=== PATIENT | female | born 1970 | race Caucasian/White ===

== ENCOUNTER → 2017-04-04 16:57 | Outpatient (CLI) | payer MEDICAID ==
[2014-03-31 06:43] VITALS: BMI 33.3
[~2017-04-04 16:57] MED LIST: MULTI-DAY VITAM1 TAB PO; PERCOCET 10/3251 TA1 PO; SEROQUEL50 MG PO; TOPAMAX25 MG PO; ginseng OR
== END | disposition home or self-care (01) ==
LOC: D.MAMMO 08:30
DX: Z85.3 Personal history of malignant neoplasm of breast (principal)

== ENCOUNTER 2018-03-17 08:00 | Outpatient (CLI) | payer MEDICAID ==
[2014-03-31 06:43] VITALS: BMI 33.3
[2018-05-14] MEDS ORDERED: EFFEXOR XR75 MG PO (14:16)
[2018-05-14] MEDS ORDERED: LAMICTAL25 MG PO (14:16)
[2018-05-14] MEDS ORDERED: SEROQUEL200 MG PO (14:17)
[2018-05-14] MEDS ORDERED: LISINOPRIL10 MG PO (14:17)
== END 2018-03-17 09:00 | disposition home or self-care (01) ==
LOC: D.MAMMO 08:00
DX: Z12.31 Encounter for screening mammogram for malignant neoplasm of breast (principal)

== ENCOUNTER 2018-04-15 14:59 | Emergency (ER) | payer MEDICAID ==
[~2018-04-15] VITALS: Ht 165.1 cm; Wt 104.5 kg
[2018-04-15 15:08] VITALS: Ht 165.1 cm; Wt 104.5 kg
[2018-04-15] MEDS ORDERED: BUPROPION HCL75 MG PO (15:09)
[2018-04-15] MEDS ORDERED: LAMICTAL100 MG PO (15:09)
[2018-04-15] MEDS ORDERED: BUPROPION XL150 MG PO (15:09)
[2018-04-15] MEDS ORDERED: HYDROCODON-ACE1 EAC7 PO (15:10)
[2018-04-15] MEDS ORDERED: ATIVAN1 MG PO (15:11)
[2018-04-15] MEDS ORDERED: ROBAXIN500 MG PO (15:11)
[2018-04-15 15:48] LABS: BASOPHILS 0.4 % (0-2); EOSINOPHILS 2.4 % (0-7); HEMATOCRIT 43.3 % (36.0-48.0); HEMOGLOBIN 14.3 g/dL (12-16); IMMATURE GRANULOCYTES 0.5 % (0-5); LYMPHOCYTES 30.7 % (15-50); MCH 30.6 pg (26.0-34.0); MCV 92.7 fL (80.0-100.0); MONOCYTES 6.5 % (2-11); NEUTROPHILS 59.5 % (40-80); PLATELET COUNT 291 10x3/uL (130-400); RBC 4.67 10x6/uL (4.00-5.40); RDW 13.8 % (11.5-14.5); WBC 11.1 10x3/uL (4.8-10.8)
[2018-04-15 16:00] LABS: APTT 26.8 SECONDS (22.8-39.4); INR 0.86 (0.85-1.17); PROTIME 11.4 SECONDS (11.6-15.0)
[2018-04-15 16:01] LABS: D-DIMER-QUANTITATIVE 0.32 ug/mLFEU (0.20-0.54)
[2018-04-15 16:07] LABS: ALKALINE PHOSPHATASE 85 U/L (46-116); ALT (SGPT) 18 U/L (10-68); BILIRUBIN - TOTAL 0.18 mg/dL (0.2-1.3); CALC OSMOLALITY 280 mosm/kg (275-300); CALCIUM 8.3 mg/dL (8.5-10.1); CARBON DIOXIDE 25.3 mmol/L (21.0-32.0); CHLORIDE - SERUM 105 mmol/L (98-107); CREATININE - SERUM 0.8 mg/dL (0.6-1.3); GLUCOSE 122 mg/dL (74-106); POTASSIUM - SERUM 3.7 mmol/L (3.5-5.1); PROTEIN - SERUM 6.9 g/dL (6.4-8.2); SODIUM 141 mmol/L (136-145); UREA NITROGEN 9 mg/dL (7-18); eGFR NON AFRICAN AMERICAN 80 mL/min (90-120)
[2018-04-15 16:33] LABS: CKMB 0.6 U/L (0.0-3.6); CREATINE KINASE 42 UL (21-215); THYROID STIMULATING HORMONE 0.84 uIU/mL (0.36-3.74)
[2018-04-15 16:44] LABS: TROPONIN-I < 0.017 ng/mL (0.000-0.060)
[2018-04-15 17:01] LABS: UDS - AMPHET POSITIVE QUAL (NEGATIVE); UDS - BARB NEGATIVE QUAL (NEGATIVE); UDS - BENZO NEGATIVE QUAL (NEGATIVE); UDS - COCAINE NEGATIVE QUAL (NEGATIVE); UDS - OPIATE POSITIVE QUAL (NEGATIVE); UDS - PCP NEGATIVE QUAL (NEGATIVE); UDS - THC NEGATIVE QUAL (NEGATIVE)
[2018-04-15 17:37] LABS: APPEARANCE CLEAR (CLEAR); BILIRUBIN NEGATIVE (NEGATIVE); COLOR YELLOW (YELLOW); GLUCOSE NEGATIVE (NEGATIVE); KETONE NEGATIVE (NEGATIVE); NITRITE NEGATIVE (NEGATIVE); PROTEIN NEGATIVE (NEGATIVE); SPECIFIC GRAVITY 1.025 (1.005-1.020); UROBILINOGEN NORMAL (NORMAL)
[2018-04-15 17:38] LABS: BACTERIA MANY /hpf (NONE SEEN); EPITHELIAL CELLS 0-5 /hpf (0-5); RED CELLS - URINE OCC /hpf (0-5); WHITE CELLS - URINE OCC /hpf (0-5)
[2018-04-15 18:15] VITALS: BP 149/88
[2018-05-14] MEDS ORDERED: LAMICTAL25 MG PO (14:16)
[2018-05-14] MEDS ORDERED: EFFEXOR XR75 MG PO (14:16)
[2018-05-14] MEDS ORDERED: SEROQUEL200 MG PO (14:17)
[2018-05-14] MEDS ORDERED: LISINOPRIL10 MG PO (14:17)
== END 2018-04-15 18:15 | disposition home or self-care (01) ==
LOC: D.ER 14:59
PROVIDERS: Family Medicine
DX: F15.90 Other stimulant use, unspecified, uncomplicated (principal); F11.90 Opioid use, unspecified, uncomplicated; F13.90 Sedative, hypnotic, or anxiolytic use, unspecified, uncomplicated; R47.01 Aphasia; R41.3 Other amnesia; F31.81 Bipolar II disorder; F17.200 Nicotine dependence, unspecified, uncomplicated

== ENCOUNTER 2018-05-16 05:35 | Day surgery (SDC) | payer MEDICAID ==
[2018-05-14 15:32] LABS: BASOPHILS 0.4 % (0-2); EOSINOPHILS 1.8 % (0-7); HEMATOCRIT 42.8 % (36.0-48.0); HEMOGLOBIN 14.6 g/dL (12-16); IMMATURE GRANULOCYTES 0.5 % (0-5); LYMPHOCYTES 33.4 % (15-50); MCH 31.2 pg (26.0-34.0); MCHC 34.1 g/dL (31.0-37.0); MCV 91.5 fL (80.0-100.0); MEAN PLATELET VOLUME 9.4 fL (7.4-10.4); MONOCYTES 5.7 % (2-11); NEUTROPHILS 58.2 % (40-80); PLATELET COUNT 328 10x3/uL (130-400); RBC 4.68 10x6/uL (4.00-5.40); RDW 13.8 % (11.5-14.5); WBC 9.2 10x3/uL (4.8-10.8)
[~2018-05-16] VITALS: Ht 165.1 cm; Wt 106.6 kg
--- NOTE | ~2018-05-16 | OP ---
PATIENT NAME: AZAEL BROWN MEDICAL RECORD: [id number] :66 LOCATION:D[facility] ADMISSION DATE: SURGEON: DANICA MEDINA MD DATE OF OPERATION: 05/16/2018 PREOPERATIVE DIAGNOSIS: Endometrial thickening on ultrasound. POSTOPERATIVE DIAGNOSIS: Endometrial polyps. PROCEDURES: Hysteroscopy, dilation and curettage. SURGEON: Danica Medina MD ESTIMATED BLOOD LOSS: Minimal. INTRAVENOUS FLUIDS: Per anesthesia record. HYSTEROSCOPIC FLUID LOSS: Less than 100 cc of 0.9 normal saline. FINDINGS: 1. Grossly normal-appearing endometrial cavity. 2. Several small endometrial polyps noted. COMPLICATIONS: None apparent. DESCRIPTION OF PROCEDURE: The patient taken to the operating room, where general anesthesia was achieved without any difficulty. The patient was then prepped and draped in normal sterile fashion in the dorsal lithotomy position in the [facility]. At this point, the patient was prepped and draped in normal sterile fashion. A minimal amount of urine was taken from the bladder using a straight cath. At this point, a Graves speculum was placed into the vagina and the cervix was grasped at the anterior lip with a single-tooth tenaculum. The uterus sounded to approximately 8 cm. The hysteroscope was introduced without any significant dilation needed. Survey of the endometrial canal and endocervix was performed. Then, gentle curettage was performed removing several polyps that had been identified with the hysteroscope. The tenaculum was then removed. The patient tolerated the procedure well, transported to postanesthesia recovery stable without incident. TRANSINT:[id number] Voice Confirmation ID: [id number] DOCUMENT ID: [id number] DANICA MEDINA MD at 1757 CC: [id number] DICTATION DATE: 05/16/1840 GLOBAL LOGISTICS ANALYST: 05/16/18917 [facility] 05/16/18 [id number] [place] [address]
[~2018-05-16 05:35] MED LIST changes: +ATIVAN1 MG PO; +BUPROPION HCL75 MG PO; +BUPROPION XL150 MG PO; +EFFEXOR XR75 MG PO; +HYDROCODON-ACE1 EAC7 PO; +LAMICTAL100 MG PO; +LAMICTAL25 MG PO; +LISINOPRIL10 MG PO; +ROBAXIN500 MG PO; +SEROQUEL200 MG PO
[2018-05-16 06:48] VITALS: BP 123/69; BMI 39.1
[2018-05-16 06:52] VITALS: Ht 165.1 cm; Wt 106.6 kg
[2018-05-16 07:48] LABS: HCG URINE NEGATIVE (NEGATIVE)
== END 2018-05-16 10:25 | disposition home or self-care (01) ==
LOC: D.OPS 05:35 → D.PAN 08:00 → D.OPS 08:00
PROVIDERS: Obstetrics & Gynecology
DX: R93.8 Abnormal findings on diagnostic imaging of other specified body structures (principal); N84.0 Polyp of corpus uteri; F31.9 Bipolar disorder, unspecified; I10 Essential (primary) hypertension; F17.200 Nicotine dependence, unspecified, uncomplicated; Z79.899 Other long term (current) drug therapy

== ENCOUNTER → 2020-06-07 11:49 | Outpatient (CLI) | payer MEDICAID ==
[2018-05-16 06:52] VITALS: BMI 38.3
== END | disposition home or self-care (01) ==
LOC: D.MRI 11:30
PROVIDERS: ATTEND Orthopaedic Surgery
DX: M48.02 Spinal stenosis, cervical region (principal)

== ENCOUNTER 2021-02-08 08:00 | Outpatient (CLI) | payer BC ==
[2018-05-16 06:52] VITALS: BMI 38.3
== END 2021-02-08 08:01 | disposition home or self-care (01) ==
LOC: D.MAMMO 08:00
PROVIDERS: ATTEND Family Medicine
DX: Z12.31 Encounter for screening mammogram for malignant neoplasm of breast (principal)